=== PATIENT | male | born 1955 | race Caucasian/White ===

== ENCOUNTER 2018-01-29 17:50 | Inpatient (IN) | payer MEDICARE, OTHER ==
[2018-01-29] MEDS ORDERED: DIPHENHYDRAMINE 50 MG INJ (18:10)
[2018-01-29] MEDS ORDERED: METHYLPREDNISOLONE 125 MG INJ (18:10)
[2018-01-29] MEDS ORDERED: EPINEPHrine 1 MG INJ (18:10)
[2018-01-29 18:19] LABS: ADD MAN DIFF? NO
[2018-01-29] MEDS: DIPHENHYDRAMINE 50 MG INJ IV (18:20)
[2018-01-29] MEDS: EPINEPHrine 1 MG INJ IM (18:20)
[2018-01-29] MEDS: METHYLPREDNISOLONE 125 MG INJ IV (18:20)
[2018-01-29 18:26] LABS: BASOPHILS % 0.2 % (0.0-2.0); EOSINOPHILS # 0.1 10^3/ul (0.0-0.5); EOSINOPHILS % 0.6 % (0.0-7.0); HEMATOCRIT 45.9 % (42.0-52.0); HEMOGLOBIN 15.4 g/dl (14.0-18.0); LYMPHOCYTES # 4.2 10^3/ul (0.8-2.9); LYMPHOCYTES % 48.8 % (15.0-51.0); MEAN CORPUSCULAR HEMOGLOBIN 31.2 pg (29.0-33.0); MEAN CORPUSCULAR HGB CONC 33.6 g/dl (32.0-37.0); MEAN CORPUSCULAR VOLUME 93.1 fl (82.0-101.0); MONOCYTE # 0.6 10^3/ul (0.3-0.9); MONOCYTES % 7.5 % (0.0-11.0); NEUTROPHIL # 3.6 10^3/ul (1.6-7.5); NEUTROPHILS % 42.5 % (39.0-77.0); PLATELET COUNT 191 10^3/UL (140-415); RED BLOOD COUNT 4.93 10^6/ul (4.70-6.10); RED CELL DISTRIBUTION WIDTH 12.3 % (11.5-14.5)
[2018-01-29 18:26] LABS: WHITE BLOOD COUNT 8.5 10^3/ul (4.8-10.8)
[2018-01-29 18:42] LABS: INR 1.01; PROTIME 13.4 Sec (11.9-14.9)
[2018-01-29] MEDS: FAMOTIDINE 20 MG INJ IV (18:47)
[2018-01-29] MEDS: ASPIRIN 81 MG TAB PO (18:48)
[2018-01-29 18:57] LABS: ANION GAP 18 (8-16); BLOOD UREA NITROGEN 28 mg/dl (7-20); CARBON DIOXIDE 22 mmol/L (21-31); CHLORIDE 107 mmol/L (97-110); CREATININE 1.12 mg/dl (0.61-1.24); GLUCOSE 123 mg/dl (70-220); POTASSIUM 4.2 mmol/L (3.5-5.1); SODIUM 143 mmol/L (135-144)
[2018-01-29 19:08] LABS: B-TYPE NATRIURETIC PEPTIDE 73 PG/ML (0-125)
[2018-01-29 19:13] LABS: TROPONIN-I < 0.012 ng/ml (0.00-0.12)
[2018-01-29] MEDS ORDERED: ACETAMINOPHEN 325 MG TAB PO (21:30)
[2018-01-29] MEDS ORDERED: ONDANSETRON 4 MG INJ IV (21:30)
[2018-01-29] MEDS: morphine 2 MG INJ IV (22:33)
[2018-01-29] MEDS: ZOLPIDEM 5 MG TAB PO (23:28)
[2018-01-30] MEDS: DIPHENHYDRAMINE 50 MG INJ IV ×3 (00:40→11:56)
[2018-01-30 01:53] LABS: CREATINE KINASE 82 IU/L (23-200)
[2018-01-30 02:03] LABS: CK INDEX 2.3; TROPONIN-I 0.014 ng/ml (0.00-0.12)
[2018-01-30 02:04] LABS: CK-MB 1.86 ng/ml (0.0-2.4)
[2018-01-30 06:53] LABS: ADD MAN DIFF? NO
[2018-01-30 07:00] LABS: WHITE BLOOD COUNT 5.5 10^3/ul (4.8-10.8)
[2018-01-30 07:00] LABS: HEMATOCRIT 39.3 % (42.0-52.0); HEMOGLOBIN 13.5 g/dl (14.0-18.0); LYMPHOCYTES # 1.2 10^3/ul (0.8-2.9); MEAN CORPUSCULAR HGB CONC 34.4 g/dl (32.0-37.0); MEAN CORPUSCULAR VOLUME 93.1 fl (82.0-101.0); MEAN PLATELET VOLUME 10.5 fl (7.4-10.4); MONOCYTE # 0.3 10^3/ul (0.3-0.9); MONOCYTES % 5.7 % (0.0-11.0); NEUTROPHIL # 3.9 10^3/ul (1.6-7.5); NEUTROPHILS % 71.7 % (39.0-77.0); PLATELET COUNT 142 10^3/UL (140-415); RED BLOOD COUNT 4.22 10^6/ul (4.70-6.10); RED CELL DISTRIBUTION WIDTH 12.5 % (11.5-14.5)
[2018-01-30 07:20] LABS: CREATINE KINASE 65 IU/L (23-200)
[2018-01-30 07:26] LABS: ALANINE AMINOTRANSFERASE 85 IU/L (13-69); ALBUMIN/GLOBULIN RATIO 1.33; ALKALINE PHOSPHATASE 34 IU/L (42-121); ANION GAP 21 (8-16); ASPARTATE AMINO TRANSFERASE 44 IU/L (15-46); BILIRUBIN,INDIRECT 0.8 mg/dl (0-1.1); BILIRUBIN,TOTAL 0.8 mg/dl (0.2-1.3); BLOOD UREA NITROGEN 21 mg/dl (7-20); CALCIUM 9.1 mg/dl (8.4-10.2); CARBON DIOXIDE 20 mmol/L (21-31); CHLORIDE 107 mmol/L (97-110); CREATININE 0.84 mg/dl (0.61-1.24); GLUCOSE 152 mg/dl (70-220); POTASSIUM 4.9 mmol/L (3.5-5.1); SODIUM 143 mmol/L (135-144)
[2018-01-30 07:33] LABS: CK INDEX 2.4; TROPONIN-I 0.012 ng/ml (0.00-0.12)
[2018-01-30 07:35] LABS: CK-MB 1.58 ng/ml (0.0-2.4)
== END 2018-01-30 15:38 | disposition home or self-care (01) | DRG 916 ==
LOC: TEL 23:42 → E/R 17:50 → TEL 21:06
PROVIDERS: Internal Medicine
DX: T88.6XXA Anaphylactic reaction due to adverse effect of correct drug or medicament properly administered, initial encounter (principal); T36.0X5A Adverse effect of penicillins, initial encounter; I95.2 Hypotension due to drugs; I10 Essential (primary) hypertension; E78.5 Hyperlipidemia, unspecified; I25.10 Atherosclerotic heart disease of native coronary artery without angina pectoris; G62.9 Polyneuropathy, unspecified; K21.9 Gastro-esophageal reflux disease without esophagitis; F32.9 Major depressive disorder, single episode, unspecified; F41.9 Anxiety disorder, unspecified; Y92.019 Unspecified place in single-family (private) house as the place of occurrence of the external cause; Z87.891 Personal history of nicotine dependence; Z85.830 Personal history of malignant neoplasm of bone; Z95.5 Presence of coronary angioplasty implant and graft
CPT/HCPCS: 36415; 71045; 80048; 80053; 82550; 82553; 82962; 83880; 84484; 85025; 85610; 93005; 96372; 96374; 96375; 99291-25